=== PATIENT | female | born 1955 | race Caucasian/White ===

== ENCOUNTER → 2022-02-16 11:22 | Outpatient (BNVA) | payer MEDICARE, OTHER, SELFPAY | PROVIDERS: Visit Provider Registered Nurse | DX: E11.9 Type 2 diabetes mellitus without complications (principal); Z12.11 Encounter for screening for malignant neoplasm of colon | CPT/HCPCS: 80053; 83036; 84443; 85025 ==

== ENCOUNTER → 2022-03-19 13:15 | Outpatient (BNVA) | payer MEDICARE, OTHER, SELFPAY | PROVIDERS: Visit Provider Surgery | DX: Z12.11 Encounter for screening for malignant neoplasm of colon (principal) | CPT/HCPCS: 99203 ==

== ENCOUNTER → 2022-07-15 10:42 | Outpatient (BNVA) | payer MEDICARE, OTHER, SELFPAY | PROVIDERS: PCP Nurse Practitioner Family; Visit Provider Nurse Practitioner Family | DX: S82.391A Other fracture of lower end of right tibia, initial encounter for closed fracture (principal); X58.XXXA Exposure to other specified factors, initial encounter | CPT/HCPCS: 73610 ==

== ENCOUNTER → 2022-07-16 08:33 | Outpatient (BNVA) | payer MEDICARE, OTHER, SELFPAY | PROVIDERS: PCP Nurse Practitioner Family; Visit Provider Podiatrist Foot & Ankle Surgery | DX: S82.401A Unspecified fracture of shaft of right fibula, initial encounter for closed fracture; X58.XXXA Exposure to other specified factors, initial encounter | CPT/HCPCS: 29515; 99204 ==

== ENCOUNTER → 2022-07-21 09:07 | Outpatient (BNVA) | payer MEDICARE, OTHER, SELFPAY | PROVIDERS: PCP Nurse Practitioner Family; Visit Provider Podiatrist Foot & Ankle Surgery | DX: S82.401A Unspecified fracture of shaft of right fibula, initial encounter for closed fracture (principal); X58.XXXA Exposure to other specified factors, initial encounter | CPT/HCPCS: 73610; 99214 ==

== ENCOUNTER → 2022-08-04 12:57 | Outpatient (BNVA) | payer MEDICARE, OTHER, SELFPAY | PROVIDERS: PCP Nurse Practitioner Family; Visit Provider Podiatrist Foot & Ankle Surgery | DX: S82.401A Unspecified fracture of shaft of right fibula, initial encounter for closed fracture (principal); X58.XXXA Exposure to other specified factors, initial encounter | CPT/HCPCS: 73610 ==

== ENCOUNTER 2022-08-04 14:16 | Outpatient (CLI) | payer MEDICARE, OTHER, SELFPAY | END 2022-08-04 14:17 | disposition home or self-care (01) | LOC: SPT 14:17 | PROVIDERS: PCP Nurse Practitioner Family; Visit Provider Podiatrist Foot & Ankle Surgery | DX: Z46.89 Encounter for fitting and adjustment of other specified devices (principal); S82.401D Unspecified fracture of shaft of right fibula, subsequent encounter for closed fracture with routine healing; S99.911D Unspecified injury of right ankle, subsequent encounter; X58.XXXD Exposure to other specified factors, subsequent encounter | CPT/HCPCS: 97760; 99213; L4361 ==

== ENCOUNTER → 2022-08-18 11:14 | Outpatient (BNVA) | payer MEDICARE, OTHER, SELFPAY | PROVIDERS: PCP Nurse Practitioner Family; Visit Provider Podiatrist Foot & Ankle Surgery | DX: S82.401A Unspecified fracture of shaft of right fibula, initial encounter for closed fracture (principal); X58.XXXA Exposure to other specified factors, initial encounter | CPT/HCPCS: 73610; 99214 ==

== ENCOUNTER → 2022-09-01 13:12 | Outpatient (BNVA) | payer MEDICARE, OTHER, SELFPAY | PROVIDERS: PCP Nurse Practitioner Family; Visit Provider Podiatrist Foot & Ankle Surgery | DX: S82.401A Unspecified fracture of shaft of right fibula, initial encounter for closed fracture (principal); W19.XXXA Unspecified fall, initial encounter | CPT/HCPCS: 73610 ==

== ENCOUNTER 2022-09-01 14:27 | Outpatient (CLI) | payer MEDICARE, OTHER, SELFPAY | END 2022-09-01 14:28 | disposition home or self-care (01) | LOC: SPT 14:29 | PROVIDERS: PCP Nurse Practitioner Family; Visit Provider Podiatrist Foot & Ankle Surgery | DX: Z46.89 Encounter for fitting and adjustment of other specified devices (principal); S82.401D Unspecified fracture of shaft of right fibula, subsequent encounter for closed fracture with routine healing; S99.911D Unspecified injury of right ankle, subsequent encounter; X58.XXXD Exposure to other specified factors, subsequent encounter | CPT/HCPCS: 97760; 99213; L1902 ==

== ENCOUNTER → 2022-09-21 14:43 | Outpatient (BNVA) | payer MEDICARE, OTHER, SELFPAY | PROVIDERS: PCP Nurse Practitioner Family; Visit Provider Podiatrist Foot & Ankle Surgery | DX: S82.401A Unspecified fracture of shaft of right fibula, initial encounter for closed fracture (principal); B35.3 Tinea pedis; W18.30XA Fall on same level, unspecified, initial encounter | CPT/HCPCS: 99213 ==

== ENCOUNTER 2022-09-30 06:00 | Outpatient (RCR) | payer MEDICARE, OTHER, SELFPAY | END 2022-10-27 23:59 | disposition home or self-care (01) | LOC: WPT 06:00 | PROVIDERS: PCP Nurse Practitioner Family; Visit Provider Podiatrist Foot & Ankle Surgery | DX: M25.571 Pain in right ankle and joints of right foot (principal) | CPT/HCPCS: 97110; 97112; 97161; 97530 ==

== ENCOUNTER → 2022-10-23 11:07 | Outpatient (BNVA) | payer MEDICARE, OTHER, SELFPAY | PROVIDERS: PCP Nurse Practitioner Family; Visit Provider Podiatrist Foot & Ankle Surgery | DX: S82.401A Unspecified fracture of shaft of right fibula, initial encounter for closed fracture (principal); B35.3 Tinea pedis; X58.XXXA Exposure to other specified factors, initial encounter | CPT/HCPCS: 99214 ==

== ENCOUNTER 2022-10-28 06:00 | Outpatient (RCR) | payer MEDICARE, OTHER, SELFPAY | END 2022-11-27 23:59 | disposition home or self-care (01) | LOC: WPT 06:00 | PROVIDERS: PCP Nurse Practitioner Family; Visit Provider Podiatrist Foot & Ankle Surgery | DX: M25.571 Pain in right ankle and joints of right foot (principal) | CPT/HCPCS: 97110 ==

== ENCOUNTER 2022-11-19 11:10 | Outpatient (CLI) | payer MEDICARE, OTHER, SELFPAY ==
--- NOTE | 2022-11-19 11:45 | MR_ITS ---
WS: [id number] EXAMINATION: MR ankle RT wo con* [id number] ORDER DATE: 11/19/2022 11:45 AM COMPARISON: None. HISTORY: Persistent right ankle pain after closed fibular fracture CONTRAST: None. TECHNIQUE: Axial proton density fat sat, axial T1, sagittal proton density, sagittal STIR, coronal T2 fat sat, and coronal T1 sequences performed. After contrast, axial T1 fat sat, coronal T1 fat sat, and sagittal T1 fat sat were performed. FINDINGS: Pes planus. History of prior distal fibular fracture. Plantar calcaneal spurring. Palpable marker ove rlying the anterior lower leg soft tissues with normal underlying subcutaneous soft tissues. Addition al palpable marker overlying the lateral ankle at the level of the ATF. ATF appears intact. Underlyin g subcutaneous edema deep to the palpable marker. Palpable marker also abuts the , extensor digitorum longus which is normal in appearance. Normal extensor compartment tendons. Tiny amount of tenosynovitis along the tibialis posterior. Normal flexor compartment tendons. Tiny am ount of tenosynovitis along the peroneal tendon sheaths. Distal Achilles is normal in appearance. Nor mal bone marrow signal in the talar dome. Tiny amount of subchondral cystic change involving the medi al aspect of the talar dome. Normal plantar aponeurosis. Normal bone marrow signal in the cuboid. Normal navicular. Normal talocal caneal articulation. Normal tibial plafond. Prior healed distal fibular fracture without significant displacement. Small amount of residual edema along the fracture site. Minimal widening of the distal fragment with slight posterior displacement measuring 4 mm. Normal deltoid ligament. MR/MR ankle RT wo con* [id number] IMPRESSION: 1. Healing fracture of the distal fibula with minimal residual widening and sl ight posterior angulation of the distal fragment measuring 4 mm. 2. Otherwise normal ankle mortise. 3. Palpable marker anteriorly overlying the extensor digitorum longus which is normal in appearance. 4. Otherwise normal extensor and flexor compartment tendons with a small amoun t of tenosynovitis along the tibialis posterior. 5. Small amount of tenosynovitis along the peroneal tendon sheath. 6. Small ankle effusion. 7. ATF appears intact.
== END 2022-11-19 11:11 | disposition home or self-care (01) ==
LOC: RAD 11:16
PROVIDERS: PCP Nurse Practitioner Family; Visit Provider Podiatrist Foot & Ankle Surgery
DX: M25.571 Pain in right ankle and joints of right foot (principal); M25.471 Effusion, right ankle; M65.871 Other synovitis and tenosynovitis, right ankle and foot; S82.831A Other fracture of upper and lower end of right fibula, initial encounter for closed fracture; X58.XXXA Exposure to other specified factors, initial encounter
CPT/HCPCS: 73721

== ENCOUNTER → 2022-11-27 09:21 | Outpatient (BNVA) | payer MEDICARE, OTHER, SELFPAY | PROVIDERS: PCP Nurse Practitioner Family; Visit Provider Podiatrist Foot & Ankle Surgery | DX: S82.401A Unspecified fracture of shaft of right fibula, initial encounter for closed fracture (principal); X58.XXXA Exposure to other specified factors, initial encounter | CPT/HCPCS: 99213 ==

== ENCOUNTER → 2022-12-25 09:27 | Outpatient (BNVA) | payer MEDICARE, OTHER, SELFPAY | PROVIDERS: PCP Nurse Practitioner Family; Visit Provider Podiatrist Foot & Ankle Surgery | DX: M25.571 Pain in right ankle and joints of right foot (principal) | CPT/HCPCS: 99213 ==

== ENCOUNTER 2022-12-31 16:48 | Emergency (ER) | payer MEDICARE, OTHER, SELFPAY ==
[2022-12-31 17:18] VITALS: BP 147/94; PULSE 78; RESP 16; TEMP 36.4; O2SAT 97
[2022-12-31 17:52] VITALS: BP 132/89; PULSE 79; O2SAT 98
[2022-12-31 18:22] VITALS: BP 153/88; PULSE 78; O2SAT 97
[2022-12-31 18:28] LABS: Basophils # 0.1 10^3/uL (0.0-0.1); Eosinophils # 0.2 10^3/uL (0.0-0.8); Hematocrit 46.5 % (37.0-47.0); Hemoglobin 14.3 g/dL (11.5-15.3); Lymphocytes # 2.3 10^3/uL (0.8-4.8); Lymphocytes % 24.9 %; Mean Corpuscular HGB Conc 30.8 g/dL (30.0-36.0); Mean Corpuscular Hemoglobin 29.1 pg (28.0-34.0); Mean Corpuscular Volume 94.7 fl (81-99); Mean Platelet Volume 9.6 fL (7.4-10.4); Monocytes # 0.7 10^3/uL (0.2-0.9); Monocytes % 8.1 %; Neutrophils # 5.85 10^3/uL (1.8-7.7); Neutrophils % 63.7 %; Nucleated Red Blood Cells % 0 %; Platelet Count 287 10^3/cmm (130-400); Red Blood Count 4.91 10^6/uL (4.1-5.3); Red Cell Distribution Width 13.3 % (12.1-15.1); White Blood Count 9.2 10^3/uL (4.0-10.0)
--- NOTE | 2022-12-31 18:42 | CTR_ITS ---
PROCEDURE INFORMATION: Exam: CT Abdomen And Pelvis With Contrast Exam date and time: 12/31/2022 7:09 PM Age: 67 years old Clinical indication: Abdominal pain; Generalized; Additional info: Generalized abd pain TECHNIQUE: Imaging protocol: Computed tomography of the abdomen and pelvis with contrast. Radiation optimization: All CT scans at this facility use at least one of these dose optimization techniques: automated exposure control; mA and/or kV adjustment per patient size (includes targeted exams where dose is matched to clinical indication); or iterative reconstruction. Contrast material: OMNI 350; Contrast volume: 100 ml; Contrast route: INTRAVENOUS (IV); REPORTING DATA: Count of CT and Cardiac NM exams in prior 12 months: This patient has received 0 known CTs and 0 known cardiac nuclear medicine studies in the 12 months prior to the current study. COMPARISON: No relevant prior studies available. RADIATION DOSE METRICS: Total DLP (mGy-cm): 523 FINDINGS: Lungs: Bibasilar atelectasis. Liver: Hepatic steatosis. Gallbladder and bile ducts: Normal. No calcified stones. No ductal dilation. Pancreas: Normal. No ductal dilation. Spleen: Splenic cyst. Adrenal glands: Normal. No mass. Kidneys and ureters: Normal. No hydronephrosis. Stomach and bowel: Constipation. Diverticulosis without diverticulitis. Appendix: No evidence of appendicitis. Intraperitoneal space: Unremarkable. No free air. No significant fluid collection. Vasculature: Unremarkable. No abdominal aortic aneurysm. Lymph nodes: Unremarkable. No enlarged lymph nodes. Urinary bladder: Unremarkable as visualized. Reproductive: Unremarkable as visualized. Bones/joints: Unremarkable. No acute fracture. Soft tissues: Unremarkable. CT/CT abdomen pelvis w con* [id number] IMPRESSION: 1. Negative for focal acute inflammatory process in the abdomen or pelvis. 2. Bibasilar atelectasis. 3. Hepatic steatosis. 4. Constipation. 5. Diverticulosis without diverticulitis. 6. Splenic cyst.
--- NOTE | 2022-12-31 18:43 | ED_ITS ---
HPI - Abdominal Pain General: Chief Complaint: Abdominal Pain Stated Complaint: constipation Time Seen by Provider: 12/31/22 18:24 Source: patient and family Mode of arrival: ambulatory Limitations: no limitations History of Present Illness: Patient complains of generalized abdominal pain and lack of bowel movement this been present for approximately 7 days. He states that her bowel patterns are somewhat irregular usually however she is not used to having significant pain or discomfort without bowel movements. She states that she has tried multiple regimens both laxatives, MiraLAX, fleets enema, Dulcolax without any results. She has had intermittent crampy pains since onset. She states she has not had any blood in her stools or black tarry stools. She has had no intra-abdominal surgeries other than a total abdominal hysterectomy and oophorectomy. She did have an a free flap from abdominal wall to help with breast reconstruction after breast surgery. She states she was seen at [facility] in [place] a couple of days ago and had a CT scan which did not show any obstruction at that time however she thinks her symptoms have worsened. She denies any known exposure to infectious disease, recent antibiotic use, travel, etc. She states she has been able to drink fluids well has not vomited and is making good urine output. She has had a prior history of diverticulitis several years ago when they lived in [place] required hospitalization. MD elicited complaint: abdominal pain Pertinent past history: constipation Quality: cramping, aching and fullness Migration to: no migration Relieving factors: nothing Associated Symptoms: Reports constipation; Denies chills, dysuria, fever(s), hematochezia, hematemesis, melena, nausea, syncope and vomiting Review of Systems Const: Denies: fever(s) or chills ENMT: Denies: throat pain, odynophagia, nasal discharge or nasal congestion Card: Denies: chest pain, irregular heart rhythm or syncope Resp: Denies: dyspnea, productive cough or non-productive cough GI: Reports: abdominal pain and constipation; Denies: nausea, vomiting, hematemesis, hematochezia or melena : Denies: flank pain, difficulty voiding, dysuria or urinary frequency Musc: Denies: neck pain, back pain, extremity pain or extremity swelling Skin/Breast: Denies: rash Neuro: Denies: headache(s), numbness in extremities or weakness in extremities Psych: Denies: anxiety or depression Endo: Denies: polyuria Mateusz/Lymph: Denies: easy bruising or easy bleeding PFSH ED PFSH: Medical History History of blood clots History of breast cancer cancer free since 2001. History of DVT (deep vein thrombosis) 2019 History of pulmonary embolism 2017 History of pulmonary embolism Surgical History H/O bilateral mastectomy History of bilateral carpal tunnel release History of breast reconstruction History of hysterectomy complete History of knee surgery Hx of colonoscopy 2019 Hx of hernia repair with Mesh done 2018 Family History Father Cancer lung cancer Grandmother Cancer breast Brother ALS (amyotrophic lateral sclerosis) Social History Smoking and tobacco status: never smoked Alcohol intake: never Substance/Drug Use: never Adopted: No Caregiver/support person: No Lives independently: No Household members: spouse Marital status: service: No Current occupational status: retired Sexually active: Yes Do you think of yourself as: Straight/Heterosexual Current gender identity: Female Physical Exam Narrative: EXAM NARRATIVE: She is alert, makes good eye contact, answers questions in a goal-directed fashion. Const: COMMON NORMALS: no acute distress, average body habitus, patient oriented x3 and alert GENERAL APPEARANCE: cooperative and comfortable HENMT: COMMON NORMALS: normocephalic, Normal nasal mucous membranes and t urbinates present, moist oral mucous membranes and oropharynx normal HEAD & SCALP: normocephalic NOSE: Normal nasal mucous membranes and turbinates present Eye: COMMON NORMALS: Equal, round and reactive pupils present, EOMs intact bilaterally and conjunctivae normal CONJUNCTIVA: Yes conjunctivae normal PUPIL: Yes Equal, round and reactive pupils present Neck/C-Spine: COMMON NORMALS: full ROM, no lymphadenopathy and supple Chest: COMMONS NORMALS: normal inspection of the chest Resp: COMMON NORMALS: normal respiratory effort, No retractions, No use of accessory muscles and clear to auscultation bilaterally AUSCULTATION: clear to auscultation bilaterally Cardio: COMMON NORMALS: regular rate, regular rhythm, No murmurs present (Cardio) and Peripheral pulses 2+ throughout RATE: regular rate RHYTHM: regular rhythm PERIPHERAL PULSES: Peripheral pulses 2+ throughout GI: COMMON NORMALS: Normal to inspection, nondistended, normoactive bowel sounds present PALPATION: Yes Tenderness to palpation present (GI) RECTAL EXAM: visual inspection normal, normal sphincter tone, No External hemorrhoid(s) present, No Internal hemorrhoid(s) present and no fecal impaction : COMMON NORMALS: Yes no CVA tenderness BLADDER/KIDNEY EXAM: Yes no CVA tenderness Back/Pelvis: COMMON NORMALS: no CVA tenderness, thoracic and lumbar spine normal to inspection, no thoracic nor lumbar tenderness, thoraco-lumbar ROM normal and straight leg raise negative bilaterally Extremity: COMMON NORMALS: normal to inspection, full ROM, no calf tenderness and no pedal edema Neuro: COMMON NORMALS: patient oriented x3, moves all extremities, no focal motor deficits and no sensory deficits noted SENSORIUM/ORIENTATION: Yes alert Psych: COMMON NORMALS: mental status grossly normal Skin: COMMON NORMALS: no rashes or lesions noted, no wounds and turgor normal GENERAL SKIN EXAM: no rashes or lesions noted and turgor normal Course Reevaluation(s): Reevaluation #1: Patient remained stable. I shared current findings there implications and limitations with the patient and spouse. She is currently clinically stable without any evidence of ongoing emergency medical condition such as a bowel obstruction etc. that require further intervention in the emergency department. We will have her continue her MiraLAX regimen, liquid diet, fluids and follow her response. Time: 21:13 Vital Signs: Vital signs: Vital Signs Temperature 97.5 F L 12/31/22 17:18 Pulse Rate 72 12/31/22 20:30 Respiratory Rate 14 12/31/22 19:00 Blood Pressure 124/64 12/31/22 20:30 Pulse Oximetry 98 12/31/22 20:30 Oxygen Delivery Me thod Room Air 12/31/22 20:30 MDM - Abdominal Pain Medical Decision Making This patient comes to our emergency department because of lack of bowel movement for the past week. She was seen at another facility a few days ago and had a CT scan which was unrevealing per patient and spouse. She still continues to have some feeling of fullness and no regular bowel movements for the last 2 days since her last evaluation. Apparently the patient has had some bowel issues off and on for years. She has had no intra-abdominal surgeries but has had a h ysterectomy with oophorectomy. Clinical examination reveals a soft abdomen with active normal bowel sounds. No peritoneal signs. Rectal examination revealed no evidence of impaction with good rectal tone. Imaging obtained to establish no evidence of bowel obstruction or other intra- abdominal pathology such as infection like diverticulitis etc. Was reassuring. Laboratories were also reassuring. Patient appears to have recurrent chronic functional bowel issues. I have discussed the need to get on a regular regimen with MiraLAX twice daily until she is back to her normal pattern and then dropping her MiraLAX back to once daily. We discussed maintaining a liquid diet until she feels back to normal. Discussed return precautions in detail. The patient and spouse acknowledged our discussion and conversation and were appreciative of care. Differential Diagnosis Likely abdominal pain and constipation Medical Records I reviewed the patient's medical records. Lab Data I reviewed the patient's lab results. 12/31/22 18:19 12/31/22 18:19 Labs/Radiology: Radiology Impressions Abdomen/Pelvis CT 12/31/22 18:42 IMPRESSION: 1. Negative for focal acute inflammatory process in the abdomen or pelvis. 2. Bibasilar atelectasis. 3. Hepatic steatosis. 4. Constipation. 5. Diverticulosis without diverticulitis. 6. Splenic cyst. Laboratory Results WBC 9.2 10^3/uL (4.0-10.0) 12/31/22 18:19 RBC 4.91 10^6/uL (4.1-5.3) 12/31/22 18:19 Hgb 14.3 g/dL (11.5-15.3) 12/31/22 18:19 Hct 46.5 % (37.0-47.0) 12/31/22 18:19 MCV 94.7 fl (81-99) 12/31/22 18:19 MCH 29.1 pg (28.0-34.0) 12/31/22 18:19 MCHC 30.8 g/dL (30.0-36.0) 12/31/22 18:19 RDW 13.3 % (12.1-15.1) 12/31/22 18:19 Plt Count 287 10^3/cmm (130-400) 12/31/22 18:19 MPV 9.6 fL (7.4-10.4) 12/31/22 18:19 Neut % (Auto) 63.7 % 12/31/22 18:19 Lymph % (Auto) 24.9 % 12/31/22 18:19 Carolina % (Auto) 8.1 % 12/31/22 18:19 Eos % (Auto) 2.0 % 12/31/22 18:19 Baso % (Auto) 1.0 % 12/31/22 18:19 Neut # (Auto) 5.85 10^3/uL (1.8-7.7) 12/31/22 18:19 Lymph # (Auto) 2.3 10^3/uL (0.8-4.8) 12/31/22 18:19 Carolina # (Auto) 0.7 10^3/uL (0.2-0.9) 12/31/22 18:19 Eos # (Auto) 0.2 10^3/uL (0.0-0.8) 12/31/22 18:19 Baso # (Auto) 0.1 10^3/uL (0.0-0.1) 12/31/22 18:19 Nucleated RBC % (auto) 0 % 12/31/22 18:19 Nucleated RBCs # 0.0 /100WBC 12/31/22 18:19 Sodium 138 mmol/L (136-145) 12/31/22 18:19 Potassium 4.7 mmol/L (3.5-5.1) 12/31/22 18:19 Chloride 100 mmol/L (98-107) 12/31/22 18:19 Carbon Dioxide 27 mmol/L (22-29) 12/31/22 18:19 Anion Gap 15.7 (5-19) 12/31/22 18:19 BUN 11 mg/dL (8-23) 12/31/22 18:19 Creatinine 0.8 mg/dL (0.5-0.9) 12/31/22 18:19 GFR Calculation 71.8 mL/min (90-130) L 12/31/22 18:19 Glucose 103 mg/dL (65-115) 12/31/22 18:19 Calculated Osmolality 286 mOsm/kg (285-295) 12/31/22 18:19 Calcium 9.5 mg/dL (8.5-10.5) 12/31/22 18:19 Total Bilirubin 0.7 mg/dL (0.15-1.2) 12/31/22 18:19 AST 18 U/L (0-32) 12/31/22 18:19 ALT 15 U/L (0-33) 12/31/22 18:19 Alkaline Phosphatase 112 U/L (35-105) H 12/31/22 18:19 Total Protein 7.9 g/dL (6.6-8.7) 12/31/22 18:19 Albumin 4.3 g/dL (3.5-5.2) 12/31/22 18:19 Globulin 3.6 g/dL (1.3-4.6) 12/31/22 18:19 Lipase 23 U/L (13-60) 12/31/22 18:19 Urine Color Yellow (Yellow) 12/31/22 19:33 Urine Appearance Sl hazy (CLEAR) A 12/31/22 19:33 Urine pH 5 (5-7) 12/31/22 19:33 Ur Specific Philo 1.010 (1.005-1.030) 12/31/22 19:33 Urine Protein Trace (Negative) 12/31/22 19:33 Urine Glucose (UA) Norm (Normal) 12/31/22 19:33 Urine Ketones Negative (Negative) 12/31/22 19:33 Urine Blood Neg (Negative) 12/31/22 19:33 Urine Nitrate Negative (Negative) 12/31/22 19:33 Urine Bilirubin Neg (Negative) 12/31/22 19:33 Urine Urobilinogen Neg mg/dL (Negative) 12/31/22 19:33 Ur Leukocyte Esterase Trace (Negative) H 12/31/22 19:33 Urine RBC Rare /hpf (0-2) 12/31/22 19:33 Urine WBC 0-4 /hpf (0-5) H 12/31/22 19:33 Ur Squamous Epith Cells 0-4 /hpf (0-5) H 12/31/22 19:33 Calcium Oxalate Crystal 5-10 /hpf H 12/31/22 19:33 Amorphous Sediment 1+ /hpf 12/31/22 19:33 Urine Bacteria Trace /hpf (NONE) 12/31/22 19:33 Hyaline Casts 0-4 /lpf H 12/31/22 19:33 Discharge Plan Discharge Patient Disposition: Home Clinical Impression: Constipation Condition: Stable Prescriptions: No Action spironolactone 50 mg tablet 50 mg PO DAILY isotretinoin [Accutane] 20 mg capsule PO magnesium 200 mg tablet 200 mg PO DAILY Xarelto 10 mg tablet 10 mg PO DAILY Rx Instructions: for 35 days Xarelto 20 mg tablet 20 mg PO DAILY PRN Rx Instructions: only when travelling cyanocobalamin (vitamin B-12) 1,000 mcg/mL solution 100 mcg IM ONCE hydrocodone-acetaminophen 5-325 mg tablet 1 tab PO Q6H PRN (Reason: pain) 5 Days Qty: 20 0RF Hold Instructions: Doctor's Order acetaminophen-codeine 300-15 mg tablet 1 tab PO Q8H PRN (Reason: pain) 7 Days Qty: 21 0RF Rx Instructions: Take one tablet by mouth every 8 hours as needed for pain (DME) ASO Brace 9 See Rx Instructions .Route .MEDSUPPLY Qty: 1 0RF Rx Instructions: As directed clotrimazole-betameth dip-zinc 1-0.05-20 % combo pack See Rx Instructions topical .COMPLEX Qty: 135 0RF Rx Instructions: apply CLOTRIMAZOLE/BETAMETHASONE CREAM twice daily: use ZINC OXIDE PASTE as needed/as directed topical sumatriptan succinate 100 mg tablet See Rx Instructions PO .COMPLEX Qty: 18 0RF Rx Instructions: take 1 tab at onset of headache; if no relief, may repeat 1 tab after at least 2 hrs; max = 2 tabs/24 hrs PO Discharge Orders: Discharge ED (Routine); Ordered 12/31/22 Ordered By: Ridge Ma Referrals: John Michael FNP [Primary Care Provider] - Discharge Diet: Advance as tolerated and Full LIquid Discharge Activity: Increase activity as tolerated Patient Instructions: Opioid Safety, Pain Management Activity Restrictions/Additional Instructions: As we discussed while you are in the emergency department your studies this evening did not reveal any evidence of serious condition. We recommend continue with the MiraLAX 1 packet with fluid of your choice twice daily. For the next 2 doses you may double up with 2 packets each dose and then back to 1 packet twice daily until you achieve good results and feel back to normal and then you may drop back to 1 packet daily. If you develop fever, increasing pain, vomiting or any other concerns return to this or the nearest emergency department. Coding Level of Care Code ED Pigment Weigher for Monique Willingham
[2022-12-31 18:50] LABS: Alanine Aminotransferase 15 U/L (0-33); Albumin Level 4.3 g/dL (3.5-5.2); Alkaline Phosphatase 112 U/L (35-105); Anion Gap 15.7 (5-19); Aspartate Amino Transferase 18 U/L (0-32); Blood Urea Nitrogen 11 mg/dL (8-23); Calcium 9.5 mg/dL (8.5-10.5); Carbon Dioxide 27 mmol/L (22-29); Chloride 100 mmol/L (98-107); Globulin 3.6 g/dL (1.3-4.6); Glomerular Filtration Rate 71.8 mL/min (90-130); Glucose 103 mg/dL (65-115); Lipase 23 U/L (13-60); Osmolality Calculated 286 mOsm/kg (285-295); Potassium 4.7 mmol/L (3.5-5.1); Sodium 138 mmol/L (136-145); Total Bilirubin 0.7 mg/dL (0.15-1.2); Total Protein 7.9 g/dL (6.6-8.7)
[2022-12-31 19:00] VITALS: BP 139/87; PULSE 74; RESP 14; O2SAT 99
--- NOTE | 2022-12-31 19:01 | PC.NURSE ---
received report from Christina harper @ [id number]
[2022-12-31] MEDS: iohexol 350 mg/mL 500 mL Btl (per mL) IV (19:18)
[2022-12-31] MEDS: SUMAtriptan 25 mg Tablet 50 MG PO (19:18)
[2022-12-31] MEDS: lactated ringers 1,000 ML 999 ML IV ×2 (19:22→20:51)
[2022-12-31 19:56] LABS: Add Urine Microscopic? YES; Bilirubin Urine Neg (Negative); Blood Urine Neg (Negative); Glucose Urine UA Norm (Normal); Ketones Urine Negative (Negative); Leukocyte Esterase Urine Trace (Negative); Nitrate Urine Negative (Negative); Protein Urine Trace (Negative); Urine Appearance SL Hazy (CLEAR); Urine Color Yellow (Yellow); Urobilinogen Urine Neg (Negative); pH Urine 5 (5-7)
[2022-12-31 19:58] LABS: Add Urine Culture? No; Amorphous Sediment Urine 1+ /hpf; Bacteria Urine TRACE /hpf; Hyaline Casts Urine 0-4 /lpf; RBC Urine RARE /hpf (0-2); Squamous Epithelial Cell Urine 0-4 /hpf (0-5); WBC Urine 0-4 /hpf (0-5)
[2022-12-31 20:30] VITALS: BP 124/64; PULSE 72; O2SAT 98
[2022-12-31 21:19] VITALS: BP 144/90; PULSE 82; RESP 14; O2SAT 97
== END 2022-12-31 21:32 | disposition home or self-care (01) ==
PROVIDERS: Emergency Medicine; Emergency Provider Emergency Medicine; PCP Nurse Practitioner Family
DX: K59.00 Constipation, unspecified (principal); Z85.3 Personal history of malignant neoplasm of breast
CPT/HCPCS: 36415; 74177; 80053; 81001; 83690; 85025; 96360; 99285; J7120; Q9967

== ENCOUNTER 2023-03-20 12:36 | Outpatient (CLI) | payer MEDICARE, OTHER, SELFPAY ==
--- NOTE | 2023-03-20 13:41 | XRR_ITS ---
PROCEDURE INFORMATION: Exam: XR Left Hand Exam date and time: 03/20/2023 1:45 PM Age: 67 years old Clinical indication: Injury or trauma; Other: Hand pain after dog pulled her hand with leash. Blunt trauma (contusions or hematomas); Left TECHNIQUE: Imaging protocol: Radiologic exam of the left hand. Views: 3 or more views. COMPARISON: No relevant prior studies available. FINDINGS: Bones/joints: Osseous structures are intact. Negative for fracture. Soft tissues: Normal. XR/XR hand LT min 3V* 36000 IMPRESSION: No acute findings.
== END 2023-03-20 12:37 | disposition home or self-care (01) ==
LOC: RAD 12:39
PROVIDERS: PCP Nurse Practitioner Family; Visit Provider Nurse Practitioner Family
DX: M79.89 Other specified soft tissue disorders (principal); M79.642 Pain in left hand
CPT/HCPCS: 73130

== ENCOUNTER 2023-08-16 12:28 | Outpatient (CLI) | payer MEDICARE, OTHER, SELFPAY ==
--- NOTE | 2023-08-16 12:34 | XR_ITS ---
WS: [id number] Lumbar spine, 6 views including AP, both obliques, lateral and flexion, extension and neutral positio n, 08/16/2023 Clinical Data: M51.37 - Other intervertebral disc degeneration, lumbosac... Comparison: None. Findings: No compression fractures or subluxation is seen. No disc space narrowing is seen. The transverse proc esses and SI joints are normal. The oblique films show no spondylolysis. On flexion and extension there is no limitation of motion or subluxation. There are surgical clips in the true pelvis. Impression: 1. 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 2. Negative for spondylolysis. 3. No limitation of motion or subluxation on flexion or extension.
== END 2023-08-16 12:29 | disposition home or self-care (01) ==
LOC: RAD 12:29
PROVIDERS: PCP Nurse Practitioner Family; Visit Provider Nurse Practitioner Family
DX: M51.37 Other intervertebral disc degeneration, lumbosacral region (principal); M54.30 Sciatica, unspecified side
CPT/HCPCS: 72114

== ENCOUNTER 2023-09-09 06:00 | Outpatient (RCR) | payer MEDICARE, OTHER, SELFPAY | END 2023-09-29 23:59 | disposition home or self-care (01) | LOC: WPT 06:00 | PROVIDERS: PCP Nurse Practitioner Family; Visit Provider Nurse Practitioner Family | DX: M47.896 Other spondylosis, lumbar region (principal) | CPT/HCPCS: 97110; 97112; 97140; 97161; 97530 ==

== ENCOUNTER → 2023-09-09 11:05 | Outpatient (BNVA) | payer MEDICARE, OTHER, SELFPAY | PROVIDERS: PCP Nurse Practitioner Family; Visit Provider Nurse Practitioner Family | DX: E11.9 Type 2 diabetes mellitus without complications (principal); Z13.6 Encounter for screening for cardiovascular disorders; R53.83 Other fatigue; E55.9 Vitamin D deficiency, unspecified; Z79.899 Other long term (current) drug therapy | CPT/HCPCS: 80053; 80061; 81003; 82306; 83036; 84443; 85025; 97110; 97161 ==

== ENCOUNTER 2023-09-30 06:00 | Outpatient (RCR) | payer MEDICARE, OTHER, SELFPAY | END 2023-10-28 23:59 | disposition home or self-care (01) | LOC: WPT 06:00 | PROVIDERS: PCP Nurse Practitioner Family; Visit Provider Nurse Practitioner Family | DX: M47.896 Other spondylosis, lumbar region (principal) | CPT/HCPCS: 97110; 97112; 97530 ==

== ENCOUNTER → 2023-12-28 10:44 | Outpatient (BNVA) | payer MEDICARE, SELFPAY | PROVIDERS: PCP Nurse Practitioner Family; Visit Provider Nurse Practitioner Family | DX: E66.3 Overweight (principal); R73.09 Other abnormal glucose; E66.9 Obesity, unspecified | CPT/HCPCS: 80061; 83036 ==

== ENCOUNTER → 2024-03-23 12:05 | Outpatient (BNVA) | payer MEDICARE, SELFPAY | PROVIDERS: PCP Nurse Practitioner Family; Visit Provider Nurse Practitioner Family | DX: R73.09 Other abnormal glucose (principal); E66.3 Overweight | CPT/HCPCS: 80061; 83036 ==

== ENCOUNTER → 2025-07-13 11:04 | Outpatient (BNVA) | payer MEDICARE, SELFPAY | PROVIDERS: PCP Nurse Practitioner Family; Visit Provider Nurse Practitioner Family | DX: Z13.6 Encounter for screening for cardiovascular disorders (principal); E55.9 Vitamin D deficiency, unspecified; G43.909 Migraine, unspecified, not intractable, without status migrainosus; Z79.899 Other long term (current) drug therapy; M15.1 Heberden's nodes (with arthropathy); R73.09 Other abnormal glucose; E66.3 Overweight; R53.83 Other fatigue; D64.9 Anemia, unspecified | CPT/HCPCS: 80053; 80061; 81003; 82306; 82607; 82728; 82746; 83036; 83550; 84439; 84443; 85025; 86038; 86200; 86431 ==

== ENCOUNTER 2025-08-01 14:00 | Outpatient (CLI) | payer MEDICARE, OTHER, SELFPAY ==
--- NOTE | 2025-08-01 14:30 | MR_ITS ---
WS: [id number] MRI BRAIN WITH AND WITHOUT CONTRAST HISTORY: G43.909 - Migraine, unspecified, not intractable, without... COMPARISON: None available. TECHNIQUE: Multiplanar imaging performed through the brain with MultiHance 15 ml's IV. No acute infarcts are seen. Frederick-white matter differentiation is well preserved. There are a few scattered T2 and FLAIR signal hyperintensities in the supratentorial white matter. No prior large infarct. No susceptibility artifacts or prior lacunar infarcts. Ventricles and extra-axial spaces are normal. Clivus and pituitary gland are normal. Visualized posterior fossa and brainstem are also normal. Postcontrast images are negative for masses or vascular malformations. Dural venous sinuses are normal. Paranasal sinuses: Well aerated with no significant disease. Mastoid air cells: Normal. Calvarium and scalp: Normal. MR/MR head wo/w con [id number] IMPRESSION: 1. No acute infarct or hemorrhage. 2. No enhancing masses or vascular malformations. 3. There are a few scattered T2 and FLAIR signal foci in the supratentorial wh ite matter. These can be seen with small vessel disease, migraines, diabetes an d smoking.
[2025-08-01] MEDS: gadobenate dimeglumine 20 mL vial 15 ML IV (14:46)
== END 2025-08-01 14:01 | disposition home or self-care (01) ==
PROVIDERS: PCP Nurse Practitioner Family; Visit Provider Nurse Practitioner Family
DX: G93.89 Other specified disorders of brain (principal); G43.909 Migraine, unspecified, not intractable, without status migrainosus
CPT/HCPCS: 70553; A9577